=== PATIENT | female | born 1975 | race Caucasian/White ===

== ENCOUNTER → 2016-09-07 04:48 | Emergency (ER) | payer MEDICAID, OTHER ==
[2016-09-07 04:53] VITALS: BP 149/73
== END | disposition left against medical advice (07) ==
LOC: ED 04:48
DX: R11.0 Nausea (principal); Z53.21 Procedure and treatment not carried out due to patient leaving prior to being seen by health care provider

== ENCOUNTER 2017-12-11 02:15 | Emergency (ER) | payer SELFPAY ==
--- NOTE | 2017-12-11 02:22 | ED ---
Pediatric Illness - HPI Summary HPI Summary: per triage, pt not feeling well since , states fever 102, cough, taking tylenol and ibuprofen. body aches and throat pain as well. - History Of Current Complaint Chief Complaint: EDFluSymptoms - Allergies/Home Medications Allergies/Adverse Reactions: Allergies Allergy/AdvReac Type Severity Reaction Status Date / Time MS Aspirin [Aspirin] Allergy Mild Hives Verified 09/07/16 04:54 MS Codeine [Codeine] Allergy Mild Hives Verified 09/07/16 04:54 Pediatric Past Medical History - Infectious Disease History Infectious Disease History: No Infectious Disease History: Denies: Traveled Outside the [place] in Last 30 Days Physical Exam Vital Signs On Initial Exam: Initial Vitals Temp Pulse Resp BP Pulse Ox 98.3 F 100 17 154/116 99 12/11/17 02:17 12/11/17 02:17 12/11/17 02:17 12/11/17 02:17 12/11/17 02:17 Diagnostics - Vital Signs Vital Signs Temp Pulse Resp BP Pulse Ox 12/11/17 02:17 98.3 F 100 17 154/116 99 - Laboratory Lab Statement: Any lab studies that have been ordered have been reviewed, and results considered in the medical decision making process. Discharge - Discharge Plan Referrals: Melly Monge PA [Primary Care Provider] -
[2017-12-11] MEDS ORDERED: guaiFENesin/CODIEN 100MG-10MG* 5 ML UDC PO ONE (02:36)
[2017-12-11] MEDS ORDERED: ceFUROXime TAB(*) 250 MG PO ONE (02:54)
[2017-12-11] MEDS ORDERED: Azithromycin TAB* 250 MG PO ONE (02:55)
--- NOTE | 2017-12-11 02:57 | ED ---
HPI Febrile Illness - HPI Summary HPI Summary: Pt is a 42 y/o F c/o fever as high as 103 and a non-productive cough onset four days ago. Assoc. Sx: Fatigue, Diet changes, throat pain, body aches. She states "throat feels as if it is on fire". Denies: SOB, N/V, Diarrhea. Alleviating Factors: OTC analgesics. She notes she has been taking tylenol and ibruprofen which have broken fever momentarily. No relevant PMHx or SHx to illness. - History of Current Complaint Chief Complaint: EDFluSymptoms Time Seen by Provider: 12/11/17 02:24 Hx Obtained From: Patient Onset/Duration: Started Days Ago - Timing: Constant, Lasting Days - Since , 4 days Current Severity: Moderate Pain Intensity: 6 Pain Scale Used: 0-10 Numeric Alleviating Factors: OTC Medicine - ibruprofen and tylenol Associated Signs and Symptoms: Cough - Non productive, Sore Throat - Allergy/Home Medications Allergies/Adverse Reactions: Allergies Allergy/AdvReac Type Severity Reaction Status Date / Time aspirin AdvReac Intermediate Hives Verified 12/11/17 02:56 codeine AdvReac Intermediate Hives Verified 12/11/17 02:56 PMH/Surg Hx/FS Hx/Imm Hx Sensory History: Denies: Hx Legally Blind EENT History: Denies: Hx Deafness Infectious Disease History: No Infectious Disease History: Denies: Traveled Outside the [place] in Last 30 Days - Family History Known Family History: Positive: Hypertension, Diabetes Negative: Cardiac Disease - Social History Occupation: Employed Full-time Lives: With Family Alcohol Use: None Substance Use Type: Reports: None Smoking Status (MU): Never Smoked Tobacco Review of Systems Positive: Fever - 103 highest, Fatigue, Other - diet changes Positive: Sore Throat - "on fire" Positive: Cough - non-productive All Other Systems Reviewed And Are Negative: Yes Physical Exam - Summary Physical Exam Summary: Appearance: Well-appearing, Well-nourished, lying in bed comfortably Skin: Warm, dry, no obvious rash Eyes: sclera anicteric, no conjunctival pallor ENT: mucous membranes moist, pharynx appears normal Neck: Supple, nontender Respiratory: Clear to auscultation, no signs of respiratory distress Cardiovascular: Normal S1, S2. No murmurs. Normal distal pulses in tibial and radial bilaterally. Abdomen: Soft, nontender, normal active bowel sounds present Musculoskeletal: Normal, Strength/ROM Intact Neurological: A&Ox3, awake and alert, mentation is normal, speech is fluent and appropriate Psychiatric: affect is normal, does not appear anxious or depressed Triage Information Reviewed: Yes Vital Signs On Initial Exam: Initial Vitals Temp Pulse Resp BP Pulse Ox 98.3 F 100 17 154/116 99 12/11/17 02:17 12/11/17 02:17 12/11/17 02:17 12/11/17 02:17 12/11/17 02:17 Vital Signs Reviewed: Yes Diagnostics - Vital Signs Vital Signs Temp Pulse Resp BP Pulse Ox 12/11/17 02:17 98.3 F 100 17 154/116 99 - Laboratory Lab Statement: Any lab studies that have been ordered have been reviewed, and results considered in the medical decision making process. - Radiology No standard instances Xray Interpretation: Positive (See Comments) - There is a right perihilar infiltrate Radiology Interpretation Completed By: ED Physician Course/Dx - Diagnoses Provider Diagnoses: Pneumonia Discharge - Sign-Out/Discharge Documenting (check all that apply): Patient Departure - Discharge Plan Condition: Good Disposition: HOME Prescriptions: Azithromycin TAB* [Zithromax TAB (Z-CRUZITO) 250 mg #6 tabs] 250 mg PO DAILY #4 tab ceFUROXime TAB(*) [Ceftin TAB 250 MG(*)] 500 mg PO BID 10 Days #40 tab Hydrocodone/Chlorphen P-Stirex [Tussionex Pennkinetic Susp] 5 ml PO BID PRN #60 ml MDD 10 ml PRN Reason: Cough Patient Education Materials: Pneumonia (ED) Referrals: Melly Monge PA [Primary Care Provider] - - Billing Disposition and Condition Condition: GOOD Disposition: Home
[2017-12-11 03:14] VITALS: BP 149/106
--- NOTE | 2017-12-11 07:46 | RAD ---
INDICATION: Cough, fever. COMPARISON: No relevant prior exams available on the [facility] [place] PACS for comparison. TECHNIQUE: Dual energy PA and routine lateral views of the chest were obtained. REPORT: Mild alveolar infiltrate in the RIGHT perihilar midlung zone. Negative for pleural effusion or pneumothorax. The heart, pulmonary vasculature, and mediastinal contours are unremarkable. IMPRESSION: #. Inflammatory infiltrate in the perihilar RIGHT mid lung zone. R0
== END 2017-12-11 03:13 | disposition home or self-care (01) ==
LOC: ED 02:15
DX: J18.9 Pneumonia, unspecified organism (principal); J02.9 Acute pharyngitis, unspecified; Z88.6 Allergy status to analgesic agent; Z88.5 Allergy status to narcotic agent; Z82.49 Family history of ischemic heart disease and other diseases of the circulatory system; Z83.3 Family history of diabetes mellitus
CPT/HCPCS: 71046; 99282; A9270-GY

== ENCOUNTER 2018-07-03 20:53 | Emergency (ER) | payer OTHER ==
[2018-07-03] MEDS ORDERED: ALPRAZolam TAB* 0.5 MG PO ONE (21:56)
[2018-07-03] MEDS ORDERED: cloNIDine TAB* 0.1 MG PO ONE (21:56)
[2018-07-03] MEDS ORDERED: Butalb/Acetamin/Caff TAB* 1 TAB PO ONE (21:56)
--- NOTE | 2018-07-03 21:59 | ED ---
Hypertension - HPI Summary HPI Summary: Pt is a 43 y/o M presenting to the ED with a chief complaint of high blood pressure. Shes been on 5mg of Lisinopril for the past 1.5 months. Pt reports dizziness, headache, anxiety, and nausea. Her headache came on yesterday and is presently mild and described as throbbing. Pt denies hx of anxiety or panic attacks or headaches. - History of Current Complaint Chief Complaint: EDHypertension Stated Complaint: HIGH BLOOD PRESSURE Time Seen by Provider: 07/03/18 21:32 Hx Obtained From: Patient Onset/Duration: Started Days Ago - yesterday, Still Present Timing: Constant, Lasting Days Aggravating Factor(s): Nothing Alleviating Factor(s): Nothing Associated Signs & Symptoms: Anxiety/Stress, Headaches, Dizziness, Other: - nausea Current Medications: Other - lisinopril - Allergies/Home Medications Allergies/Adverse Reactions: Allergies Allergy/AdvReac Type Severity Reaction Status Date / Time aspirin AdvReac Intermediate Hives Verified 07/03/18 20:59 codeine AdvReac Intermediate Hives Verified 07/03/18 20:59 PMH/Surg Hx/FS Hx/Imm Hx Previously Healthy: No Cardiovascular History: Reports: Hx Hypertension Sensory History: Denies: Hx Legally Blind, Hx Deafness Opthamlomology History: Denies: Hx Legally Blind Infectious Disease History: No Infectious Disease History: Denies: Traveled Outside the [place] in Last 30 Days - Family History Known Family History: Positive: Hypertension, Diabetes Negative: Cardiac Disease - Social History Alcohol Use: None Substance Use Type: Reports: None Smoking Status (MU): Never Smoked Tobacco Review of Systems Negative: Fever Positive: Nausea Neurological: Other - dizziness Positive: Headache Positive: Anxious All Other Systems Reviewed And Are Negative: Yes Physical Exam - Summary Physical Exam Summary: VITAL SIGNS: Reviewed. GENERAL: Patient is a well-developed and nourished female who is lying comfortable in the stretcher. Patient is not in any acute respiratory distress. HEAD AND FACE: No signs of trauma. No ecchymosis, hematomas or skull depressions. No sinus tenderness. EYES: PERRLA, EOMI x 2, No injected conjunctiva, no nystagmus. EARS: Hearing grossly intact. Ear canals and tympanic membranes are within normal limits. MOUTH: Oropharynx within normal limits. NECK: Supple, trachea is midline, no adenopathy, no JVD, no carotid bruit, no c- spine tenderness, neck with full ROM. CHEST: Symmetric, no tenderness at palpation LUNGS: Clear to auscultation bilaterally. No wheezing or crackles. CVS: Regular rate and rhythm, S1 and S2 present, no murmurs or gallops appreciated. ABDOMEN: Soft, non-tender. No signs of distention. No rebound no guarding, and no masses palpated. Bowel sounds are normal. EXTREMITIES: FROM in all major joints, no edema, no cyanosis or clubbing. NEURO: Alert and oriented x 3. No acute neurological deficits. Speech is normal and follows commands. SKIN: Dry and warm Triage Information Reviewed: Yes Vital Signs On Initial Exam: Initial Vitals Temp Pulse Resp BP Pulse Ox 97.8 F 85 16 151/115 100 07/03/18 20:55 07/03/18 20:55 07/03/18 20:55 07/03/18 20:55 07/03/18 20:55 Vital Signs Reviewed: Yes Diagnostics - Vital Signs Vital Signs Temp Pulse Resp BP Pulse Ox 07/03/18 21:23 88 166/84 99 07/03/18 21:21 89 98 07/03/18 20:55 97.8 F 85 16 151/115 100 - Laboratory Lab Statement: Any lab studies that have been ordered have been reviewed, and results considered in the medical decision making process. Re-Evaluation - Re-Evaluation 1st Re-Eval Re-Evaluation Time: 23:30 Change: Improved Comment: Pt is feeling better and will be discharged home with a dx of HTN and headache. Hypertension Course/Dx - Course Course Of Treatment: Pt is a 43 y/o M presenting to the ED with a chief complaint of high blood pressure. Shes been on 5mg of Lisinopril for the past 1.5 months. Pt reports dizziness, headache, anxiety, and nausea. Her headache came on yesterday and is presently mild and described as throbbing. Pt had an EKG [employer] at urgent care in [place]. As of 2329, pt is improved and will be sent home with a dx of headache and HTN. - Diagnoses Provider Diagnoses: HTN (hypertension), Headache Discharge - Sign-Out/Discharge Documenting (check all that apply): Patient Departure Patient Received Moderate/Deep Sedation with Procedure: No - Discharge Plan Condition: Improved Disposition: HOME Referrals: Melly Monge PA [Primary Care Provider] - Additional Instructions: I recommend you increasing your lisinopril from 5mg to 10mg. Please follow up with your primary care provider in the next 1-2 days. Return to the emergency department with any new or worsening symptoms. - Attestation Statements Document Initiated by Scribe: Yes Documenting Scribe: Maryanne Sarmiento Provider For Whom Scribe is Documenting (Include Credential): Vasiliy Eason MD. Scribe Attestation: I, Maryanne Sarmiento, scribed for Vasiliy Eason MD. on 07/03/18 at 2332. Status of Scribe Document: Ready
[2018-07-03 23:41] VITALS: BP 97/59
== END 2018-07-03 23:40 | disposition home or self-care (01) ==
LOC: ED 20:53
DX: I10 Essential (primary) hypertension (principal); R51 Headache; R21 Rash and other nonspecific skin eruption; R42 Dizziness and giddiness; R11.0 Nausea; Z88.6 Allergy status to analgesic agent; F41.9 Anxiety disorder, unspecified
CPT/HCPCS: 99282; A9270-GY